=== PATIENT | female | born 1980 | race Caucasian/White ===

== ENCOUNTER 2023-05-27 10:39 | Emergency (ER) | payer MEDICAID, SELFPAY ==
[2023-05-27 10:56] VITALS: BP 121/75; PULSE 71; RESP 16; TEMP 36.7; O2SAT 98
--- NOTE | 2023-05-27 11:39 | ED.NURSE ---
vomiting started Thursday morning (hangover), started noticing some stinging Thursday evening.
--- NOTE | 2023-05-27 11:41 | ED.NURSE ---
Had a hangover Thursday morning which resulted in vomiting, thus irritating her throat. Thursday evening she started noticing some stinging on her throat, leading into Thursday and Thursday. Over the course of those days her throat continued to get worse and swell up more, no signs of improvement. Pt reports it felt unbearable this morning, making it hard to swallow water or eat food. Says applesauce stings the roof of mouth. Reports it feels like it is traveling down underneath her neck.
--- NOTE | 2023-05-27 11:48 | ED.NURSE ---
Took some baby aspirin today
--- NOTE | 2023-05-27 11:55 | ED.GENADULT ---
HPI - General Adult General Chief complaint: Dental/Oral/Mouth Injury/Pain Stated complaint: roof of mouth swollen Time Seen by Provider: 05/27/23 11:13 History of Present Illness HPI narrative: Patient is a 42-year-old female who has history of alcohol issues, and she was drinking and vomited couple days ago and since has had a burning feeling on the top of her mouth. She feels her retainer is a little bit hard to put on as well. She has had no difficulty swallowing stable to eat and drink adequately. No reflux or heartburn she did vomit a couple times prior to this starting. She went to the clinic this morning then came to the ER Related Data Home Medications Medication Instructions Recorded Confirmed ibuprofen 100 mg/5 mL oral 300 mg PO Q6H 05/27/23 05/27/23 suspension (Children's Ibuprofen) Previous Rx's Medication Instructions Recorded fluconazole 150 mg tablet 150 mg PO Q3D 2 doses #2 tabs 05/27/23 (Diflucan) prednisone 20 mg tablet 20 mg PO BID #4 tabs 05/27/23 Allergies Allergy/AdvReac Type Severity Reaction Status Date / Time acetaminophen Allergy Unknown Verified 05/27/23 09:06 hydrocodone Allergy Unknown Verified 05/27/23 09:06 latex Allergy Unknown Verified 05/27/23 09:06 paroxetine Allergy Unknown Verified 05/27/23 09:06 Review of Systems Status of ROS: Reports: 6 or more systems reviewed and unremarkable except as noted in History and below [facility] Medical History Oral thrush ?B37.0 - Candidal stomatitis (ICD-10) History of vaginal delivery 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) ?Z86.19 - Personal history of other infectious and parasitic diseases (ICD-10) History of abnormal cervical Papanicolaou smear (2007) ?Z87.42 - Personal history of other diseases of the female genital tract (ICD-10) Acute upper respiratory infection ?J06.9 - Acute upper respiratory infection, unspecified (ICD-10) Surgical History (Updated 03/30/23 @ 14:59 by Jami Sanders) History of colposcopy (2007) ?Z98.890 - Other specified postprocedural states (ICD-10) Family History (Updated 03/30/23 @ 15:00 by Jami Sanders) Aunt Breast cancer Colon cancer Maternal Grandfather Heart disease Mother Mental disorder Family/Other Mental disorder Social History (Updated 03/30/23 @ 15:01 by Jami Sanders) Narrative: Does not use illicit drugs Occasional alcohol consumption Smoker- ~ 5 cigarettes per day Smoking Status: Former smoker Do you use any of these nicotine containing products: None Second hand tobacco smoke exposure: No How often do you have a drink containing alcohol: monthly or less AUDIT-C Alcohol total score: 1 Non-prescribed substance use: denies use service: No Exam Narrative: Exam Narrative: Objective: Vital signs unremarkable she is afebrile O2 sat is excellent HEENT is unremarkable mouth exam shows no redness or inflammation on the top of the mouth or throat. She has no thrush or other abnormality. May be just a slight discoloration but very slight number with a mouth posteriorly, this might be consistent with a mild inflammatory type injury from vomiting. There is no swelling or masses. Const: Vital Signs, click to edit/add: Vital Signs - 24 hr 05/27/23 10:56 Temperature 98.0 F Pulse Rate [Pulse Oximeter] 71 Respiratory Rate 16 Blood Pressure [Ri ght Upper Arm] 121/75 Pulse Oximetry 98 Course Vital Signs Vital signs: Initial Vital Signs Temperature 98.0 F 05/27/23 10:56 Temperature Source Temporal Artery Scan 05/27/23 10:56 Pulse Rate 71 05/27/23 10:56 Pulse Rhythm Regular 05/27/23 10:56 Respiratory Rate 16 05/27/23 10:56 Blood Pressure 121/75 05/27/23 10:56 Blood Pressure Mean 90 05/27/23 10:56 Pulse Oximetry 98 05/27/23 10:56 Vital Signs Temperature 98.0 F 05/27/23 10:56 Pulse Rate 71 05/27/23 10:56 Respiratory Rate 16 05/27/23 10:56 Blood Pressure 121/75 05/27/23 10:56 Pulse Oximetry 98 05/27/23 10:56 Temperature 98.0 F 05/27/23 10:56 Pulse Rate 71 05/27/23 10:56 Respiratory Rate 16 05/27/23 10:56 Blood Pressure 121/75 05/27/23 10:56 Pulse Oximetry 98 05/27/23 10:56 Medical Decision Making MDM Narrative Medical decision making narrative: [age] year white female with an episode of vomiting and subsequent refer the mouth pain, at this point she may have mild inflammatory change the refer the mouth. At this point I would recommend she try prednisone for a couple of days, Benadryl, Tylenol and Advil and reassess in 3-4 days. Adequate hydration, return sooner problems or concerns or any difficulty breathing. Recommend she not take the Diflucan prescribed the clinic today as she does appear to have any thrush in her mouth. Discharge Plan Discharge Clinical Impression: Acute oral pain Patient Disposition: Home w/ Parent or Adult Condition: Stable Additional Instructions: Benadryl 3 times a day for 2-3 days, prednisone start tomorrow 20 mg b.i.d. for 2 days, adequate hydration, follow up with regular doctor in 3-4 days not improving, if changes concerns or worsening return to ED. Activity Level: No Restrictions Discharge Diet: Regular Prescriptions: New prednisone 20 mg tablet 20 mg PO BID Qty: 4 0RF No Action ibuprofen [Children's Ibuprofen] 100 mg/5 mL suspension 300 mg PO Q6H fluconazole [Diflucan] 150 mg tablet 150 mg PO Q3D Qty: 2 0RF Follow Up/Referrals: Matthew Wick PA-C [Primary Care Provider] - Stand Alone Forms: [email or web address] Info Instructions
[2023-05-27] MEDS: predniSONE 10 MG TABLET 50 MG PO (11:59)
--- OUTSIDE RECORDS SUMMARY | 2023-05-27 12:01 | XMS_ITS | Continuity of Care Document ---
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 tel:[phone] Family History Family Member Type Diagnosis Age At Onset No Information Payers Payer name Insurance type Covered democrat ID Authoriza tion(s) [facility] [id number] Social History Type Description Quantity Date Captured Comments Sex Female Smoking Status No Information Chief Complaint And Reason For Visit No Information Reason For Referral Reason For Referral No Information Plan Of Treatment Date Type Action Status No Information History Of Present Illness Encounter Date Complaint History Of Prese nt Illness No Information Functional Status Date Functional Assessmen t No Information Instructions Date Instruction Additional Infor mation No Information Assessments Type Assessment Date No Information Patient Care Teams Name Effective Dates (start - stop) Status Members No Information
--- OUTSIDE RECORDS SUMMARY | 2023-05-27 12:02 | XMS_ITS | Continuity of Care Document ---
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 Name Role Phone Unavailable Unavailable Unavailable Procedures Procedure Date Office consultation, moderate X-ray exam of neck spine, 4+ views Advance Directives Directive Yes / No Effective Date File Name No Information Encounters Encounter Description Practice Location Reason(s) For Visit Diagnoses Date Provider Providers Copied on Encounter Office consultation, moderate [facility], [address], [place], [address], [place] tel:[phone] [facility] No Information 9 No Information Referring Provider: Elsie Ibarra, [address], [address]. tel:[phone] Family History Family Member Type Diagnosis Age At Onset No Information Payers Payer name Insurance type Covered libertarian ID Authoriza tion(s) [facility] [id number] Social History Type Description Quantity Date Captured [...]
== END 2023-05-27 12:11 | disposition home or self-care (01) ==
LOC: ED 11:59
PROVIDERS: Emergency Provider Family Medicine; PCP Physician Assistant Medical
DX: K13.79 Other lesions of oral mucosa (principal)
CPT/HCPCS: 99283; J7512